=== PATIENT | male | born 1970 | race Caucasian/White ===

== ENCOUNTER 2021-04-13 23:21 | Inpatient (IN) | payer BC ==
[~2021-04-13] VITALS: Ht 172.7 cm; Wt 91.4 kg
[2021-04-13] MEDS ORDERED: SODIUM CHLORIDE 0.9% 1,000 ML IV ONE (23:30)
[2021-04-14] MEDS ORDERED: CEFTRIAXONE 1 G PREMIX 50 ML IV ONE
[2021-04-14] MEDS ORDERED: AZITHROMYCIN 500MG/250ML 250 ML IV ONE
[2021-04-14 00:37] LABS: BASOPHILS % 0.3 % (0.0-2.0); EOSINOPHILS % 0.2 % (0.0-5.0); HEMATOCRIT. 42.2 % (42.0-52.0); HEMOGLOBIN. 14.1 g/dL (14.0-18.0); MEAN CORPUSCULAR HEMOGLOBIN 30.6 pg (28.0-32.0); MEAN CORPUSCULAR VOLUME 91.5 fL (80.0-94.0); MEAN PLATELET VOLUME 7.8 fl (7.4-10.4); MONOCYTES % 4.9 % (2.0-8.0); NEUTROPHILS % 78.6 % (40.0-76.0); PLATELET 207 x1000/uL (130-400); RED BLOOD CELL COUNT 4.61 mill/uL (4.7-6.1); RED CELL DISTRIBUTION WIDTH 13.3 % (11.6-14.6)
[2021-04-14 00:45] LABS: CHLORIDE 111 mEq/L (98-107)
[2021-04-14] MEDS ORDERED: AZITHROMYCIN 500 MG in DEXT 5% WATER 250 ML IV SCH ×2 (01:00→21:00)
[2021-04-14] MEDS ORDERED: DEXAMETHASONE 10 MG/ML VIAL IV SCH (04:30)
[2021-04-14] MEDS ORDERED: IOHEXOL-350 100 ML BOTTLE ONE (06:31)
[2021-04-14] MEDS ORDERED: PROMETHAZINE/DEXTROMETHORPHAN 6.25-15MG/5ML BOTTLE 120ML PO PRN (07:15)
[2021-04-14] MEDS ORDERED: ACETAMINOPHEN 325MG TABLET PO PRN (07:15)
[2021-04-14] MEDS ORDERED: DOCUSATE SODIUM 100MG CAPSULE PO PRN (07:15)
[2021-04-14] MEDS ORDERED: IPRATROPIUM/ALBUTEROL 0.5-3(2.5)MG/3ML NEB HHN PRN (07:15)
[2021-04-14] MEDS ORDERED: BENZONATATE 100MG CAPSULE PO PRN (07:15)
[2021-04-14 08:55] LABS: PROTHROMBIN TIME 10.9 sec (9.6-11.0)
[2021-04-14 08:57] LABS: BG BASE EXCESS -4.3 mmol/L (-2.0-2.0); BG DEOXYHEMOGLOBIN 6.7 % (0.0-5.0); BG FRACTION INSPIRED OXYGEN 28; BG HCO3 ACT 18.3 mmol/L (22.0-26.0); BG METHEMOGLOBIN 0.3 % (0.0-1.5); BG OXYGEN SATURATION 93.3 % (92.0-98.5); BG PCO2 27.6 mmHg (35.0-45.0); BG SAMPLE SITE RIGHT BRACHIAL; BG TOTAL HEMOGLOBIN 14.4 g/dL (12.0-18.0); BG VENT MODE NASAL CANNULA
[2021-04-14 09:30] VITALS: BP 134/64
[2021-04-14] MEDS: FAMOTIDINE 20MG TABLET PO SCH ×2 (09:31→21:36)
[2021-04-14] MEDS: ENOXAPARIN 100MG/ML SYR SUBCUT SCH ×2 (09:33→21:37)
[2021-04-14] MEDS ORDERED: ATOR20TA65 PO (11:17)
[2021-04-14 12:00] VITALS: BP 133/74
[2021-04-14 14:07] LABS: BG BASE EXCESS -6.5 mmol/L (-2.0-2.0); BG CARBOXYHEMOGLOBIN 0.3 % (0.5-1.5); BG DEOXYHEMOGLOBIN 7.9 % (0.0-5.0); BG FRACTION INSPIRED OXYGEN 21; BG METHEMOGLOBIN 0.2 % (0.0-1.5); BG OXYGEN SATURATION 92.1 % (92.0-98.5); BG OXYHEMOGLOBIN 91.6 % (94.0-97.0); BG PCO2 21.7 mmHg (35.0-45.0); BG PH 7.458 (7.350-7.450); BG PO2 64.1 mmHg (75.0-100.0); BG SAMPLE SITE LEFT RADIAL; BG TOTAL HEMOGLOBIN 14.5 g/dL (12.0-18.0); BG VENT MODE ROOM AIR
[2021-04-14 16:00] VITALS: BP 133/71
[2021-04-14 20:00] VITALS: BP 136/80
[2021-04-14] MEDS ORDERED: AZITHROMYCIN 500MG/250ML 250 ML IV SCH (21:00)
[2021-04-14] MEDS ORDERED: CEFTRIAXONE 1,000 MG in DEXTROSE 5% WATER 50 ML IV SCH (21:00)
[2021-04-14] MEDS ORDERED: CEFTRIAXONE 1 G PREMIX 50 ML IV SCH (21:00)
[2021-04-15] VITALS: BP 133/80
[2021-04-15 04:00] VITALS: BP 131/81
[2021-04-15] MEDS ORDERED: DEXAMETHASONE 6MG TABLET PO SCH (06:00)
[2021-04-15 07:20] LABS: HEMATOCRIT 41.7 % (42.0-52.0); HEMOGLOBIN 13.7 g/dL (14.0-18.0); MEAN CORPUSCULAR HEMOGLOBIN 30.5 pg (28.0-32.0); MEAN CORPUSCULAR VOLUME 92.8 fL (80.0-94.0); PLATELET 236 x1000/uL (130-400); RED CELL DISTRIBUTION WIDTH 13.5 % (11.6-14.6)
[2021-04-15 07:32] LABS: CHLORIDE 110 mEq/L (98-107)
[2021-04-15 08:00] VITALS: BP 131/69
[2021-04-15] MEDS: ENOXAPARIN 100MG/ML SYR SUBCUT SCH (08:32)
[2021-04-15] MEDS: FAMOTIDINE 20MG TABLET PO SCH (08:32)
[2021-04-15 12:00] VITALS: BP 130/63
[2021-04-15 16:00] VITALS: BP 145/64
== END 2021-04-15 20:30 | disposition home or self-care (01) | DRG 177 ==
LOC: ER 23:21 → 7WST 04-14 03:07 → EDBEDREQDT 04-14 03:29 → EDBEDREQTM 04-14 03:29 → EDBEDREQ 04-14 03:29 → ENRESERV 04-14 07:17
PROVIDERS: ADMIT Internal Medicine Pulmonary Disease; ATTEND Internal Medicine Pulmonary Disease
DX: U07.1 COVID-19 (principal); J12.82 Pneumonia due to coronavirus disease 2019; J96.01 Acute respiratory failure with hypoxia; E44.0 Moderate protein-calorie malnutrition; E66.9 Obesity, unspecified; E87.8 Other disorders of electrolyte and fluid balance, not elsewhere classified; J45.909 Unspecified asthma, uncomplicated; Z68.30 Body mass index [BMI] 30.0-30.9, adult
CPT/HCPCS: 36415; 36600; 71045; 71275; 80048; 80053; 82375; 82805; 83605; 83615; 83880; 84145; 84484; 85025; 85027; 85379; 86141; 93005; 99291; J0456; J0696; J1100; J1650; J7030; J7040; J7060; Q9967; U0003; U0005